=== PATIENT | female | born 1970 | race African-American/Black ===

== ENCOUNTER 2023-04-03 04:18 | Day surgery (SDC) | payer OTHER ==
[2023-04-02 12:49] VITALS: BMI 26.5
[2023-04-03 11:10] VITALS: TEMP 98.4
[2023-04-03 12:00] VITALS: BP 139/84; PULSE 68; RESP 17
== END 2023-04-03 12:20 | disposition home or self-care (01) ==
LOC: JASU-ENDO 04:18
PROVIDERS: ATTEND Internal Medicine Gastroenterology
PROC: 0DB98ZX Excision of Duodenum, Via Natural or Artificial Opening Endoscopic, Diagnostic (ICD-10-PCS; 2023-04-03)
PROC: 0DB78ZX Excision of Stomach, Pylorus, Via Natural or Artificial Opening Endoscopic, Diagnostic (ICD-10-PCS; 2023-04-03)
PROC: 0DB68ZX Excision of Stomach, Via Natural or Artificial Opening Endoscopic, Diagnostic (ICD-10-PCS; 2023-04-03)
PROC: 0DBN8ZX Excision of Sigmoid Colon, Via Natural or Artificial Opening Endoscopic, Diagnostic (ICD-10-PCS; principal; 2023-04-03 11:00)
DX: C18.7 Malignant neoplasm of sigmoid colon (principal); K29.50 Unspecified chronic gastritis without bleeding; K21.00 Gastro-esophageal reflux disease with esophagitis, without bleeding; K59.89 Other specified functional intestinal disorders; K64.8 Other hemorrhoids
CPT/HCPCS: 81025; 88305-TC; 88342-TC

== ENCOUNTER 2023-04-10 04:33 | Day surgery (SDC) | payer OTHER ==
[2023-04-08 13:21] VITALS: BMI 26.5
[2023-04-10 10:22] VITALS: BP 102/68; PULSE 68; RESP 18; TEMP 98
[2023-04-10 10:46] LABS: BASO % 0.4 % (0-2.0); EOS % 6.8 % (0-4.5); HEMATOCRIT 38.3 % (32.4-45.2); LYMPH % 21.6 % (8-40); MCH 32.9 pg (25.7-33.7); MCHC 33.8 g/dl (32.0-36.0); MEAN CELL VOLUME 97.3 fl (80-96); MEAN PLT VOLUME 10.4 fl (7.5-11.1); MONO % 5.8 % (3.8-10.2); NEUT % 65.4 % (42.8-82.8); PLATELET COUNT 137 10^3/uL (134-434); RBC 3.94 M/mm3 (3.60-5.2); RDW 14.2 % (11.6-15.6); WHITE BLOOD COUNT 5.9 K/mm3 (4.0-10.0)
[2023-04-10 10:53] LABS: INR 1.06 (0.83-1.09); PROTHROMBIN TIME (PATIENT) 12.3 SEC (9.7-13.0)
[2023-04-10 11:10] LABS: CHLORIDE 106 mmol/L (98-107); POTASSIUM 3.7 mmol/L (3.5-5.1); SODIUM 139 mmol/L (136-145)
[2023-04-10 11:13] LABS: ALBUMIN 3.8 g/dl (3.4-5.0); ANION GAP 3 MMOL/L (8-16); BLOOD UREA NITROGEN 11.6 mg/dL (7-18); CALCIUM 9.6 mg/dL (8.5-10.1); CO2 30 mmol/L (21-32); GLUCOSE,RANDOM 107 mg/dL (74-106)
[2023-04-10 11:16] LABS: CREATININE 0.7 mg/dL (0.55-1.3); IRON SERUM 93 ug/dL (50-175); SGOT/AST 14 U/L (15-37); SGPT/ALT 20 U/L (13-61); TOTAL IRON BINDING CAPACITY 300 ug/dL (250-450)
[2023-04-10 11:17] LABS: TOT PROT 7.3 g/dl (6.4-8.2)
[2023-04-10 11:18] LABS: BILIRUBIN,TOTAL 0.6 mg/dL (0.2-1)
[2023-04-10 11:19] LABS: ALK PHOS 46 U/L (45-117)
== END 2023-04-10 10:36 | disposition home or self-care (01) ==
LOC: JASU-ENDO 04:33
PROVIDERS: ATTEND Internal Medicine Gastroenterology
PROC: 0DJD8ZZ Inspection of Lower Intestinal Tract, Via Natural or Artificial Opening Endoscopic (ICD-10-PCS; 2023-04-10)
PROC: 0DJD8ZZ Inspection of Lower Intestinal Tract, Via Natural or Artificial Opening Endoscopic (ICD-10-PCS; principal; 2023-04-10 09:00)
DX: Z85.038 Personal history of other malignant neoplasm of large intestine (principal); K64.8 Other hemorrhoids
CPT/HCPCS: 36415; 80053; 81025; 82378; 82728; 83540; 83550; 85025; 85610; 86140; 88305-TC

== ENCOUNTER 2023-10-16 04:17 | Day surgery (SDC) | payer OTHER ==
[2023-10-14 13:29] VITALS: BMI 25.8
[2023-10-16 09:21] VITALS: TEMP 97.2
[2023-10-16 09:30] VITALS: RESP 18
[2023-10-16 09:50] VITALS: BP 127/80; PULSE 55
== END 2023-10-16 10:10 | disposition home or self-care (01) ==
LOC: JASU-ENDO 04:17
PROVIDERS: ATTEND Internal Medicine Gastroenterology
PROC: 0DBN8ZX Excision of Sigmoid Colon, Via Natural or Artificial Opening Endoscopic, Diagnostic (ICD-10-PCS; 2023-10-16)
PROC: 0DBK8ZX Excision of Ascending Colon, Via Natural or Artificial Opening Endoscopic, Diagnostic (ICD-10-PCS; principal; 2023-10-16 09:00)
DX: Z12.11 Encounter for screening for malignant neoplasm of colon (principal); D12.2 Benign neoplasm of ascending colon; K63.89 Other specified diseases of intestine; Z85.038 Personal history of other malignant neoplasm of large intestine
CPT/HCPCS: 88305-TC

== ENCOUNTER 2024-05-12 04:18 | Day surgery (SDC) | payer OTHER ==
[2024-05-10 10:14] VITALS: BMI 25.5
[2024-05-12] MEDS ORDERED: ceFAZolin SODIUM 1 GM VIAL ONE ×2 (06:33→07:13)
[2024-05-12] MEDS ORDERED: PHENAZOPYRIDINE HCL 100 MG TABLET (FP) ONE (06:34)
[2024-05-12] MEDS ORDERED: GABAPENTIN 300 MG CAPSULE ONE (06:34)
[2024-05-12] MEDS ORDERED: ACETAMINOPHEN 500 MG TABLET (FP) ONE (06:35)
[2024-05-12] MEDS: GABAPENTIN 300 MG CAPSULE PO ONE (06:46)
[2024-05-12] MEDS: PHENAZOPYRIDINE HCL 100 MG TABLET (FP) PO ONE (06:46)
[2024-05-12] MEDS: ACETAMINOPHEN 500 MG TABLET (FP) PO ONE (06:46)
[2024-05-12] MEDS ORDERED: ACETAMINOPHEN INJECTION 100 ML IVPB ONE (07:00)
[2024-05-12] MEDS ORDERED: DEXAMETHASONE SOD PHOSPHATE 4 MG/1 ML VIAL ONE (07:13)
[2024-05-12] MEDS ORDERED: LIDOCAINE HCL/PF 2% SDV 5ML VIAL ONE (07:13)
[2024-05-12] MEDS ORDERED: MIDAZOLAM HCL 2 MG/2 ML SINGLE DOSE VIAL ONE (07:14)
[2024-05-12] MEDS ORDERED: FENTANYL CITRATE/PF 50 MCG/ML VIAL ONE (07:14)
[2024-05-12] MEDS ORDERED: PROPOFOL 40 ML ONE (07:14)
[2024-05-12] MEDS ORDERED: ROCURONIUM BROMIDE 50 MG/5 ML SYRINGE ONE (07:14)
[2024-05-12] MEDS ORDERED: SUCCINYLCHOLINE CHLORIDE 200 MG/10 ML SYRINGE ONE (07:14)
[2024-05-12] MEDS ORDERED: ONDANSETRON 4 MG/2 ML VIAL IVPUSH PRN (07:27)
[2024-05-12] MEDS ORDERED: oxyCODONE HCL 5 MG TABLET PO PRN ×3 (07:27→10:42)
[2024-05-12] MEDS: ceFAZolin SODIUM 1 GM VIAL IVPB ONE ×2 (08:20→08:58)
[2024-05-12] MEDS ORDERED: TRANEXAMIC ACID 1000 MG/10 ML VIAL ONE (08:24)
[2024-05-12] MEDS ORDERED: HYDROmorphone HCl 2 MG/ML VIAL ONE (08:34)
[2024-05-12] MEDS ORDERED: NEOSTIGMINE METHYLSULFATE 0.5 MG/1 ML - 10 ML MDV ONE (09:41)
[2024-05-12] MEDS ORDERED: BISACODYL 5 MG TABLET.DR (FP) PO PRN (10:35)
[2024-05-12] MEDS ORDERED: DOCUSATE SODIUM 100 MG CAPSULE (FP) PO PRN (10:35)
[2024-05-12] MEDS ORDERED: SIMETHICONE 80 MG TAB.CHEW (FP) PO PRN (10:35)
[2024-05-12 10:55] VITALS: RESP 18
[2024-05-12] MEDS: IBUPROFEN 800 MG/8 ML IJ IVPB SCH ×2 (12:15)
[2024-05-12] MEDS ORDERED: IBUPROFEN 800 MG/8 ML IJ IVPB ONE (12:16)
[2024-05-12] MEDS: ACETAMINOPHEN INJECTION 100 ML IVPB ONE (13:40)
[2024-05-12] MEDS: ACETAMINOPHEN 1000 MG/100 ML BAG IVPB SCH (13:40)
[2024-05-12] MEDS ORDERED: ETANERCEPT SQ SCH (16:15)
[2024-05-12] MEDS ORDERED: predniSONE 5 MG TABLET (UD) PO SCH (16:15)
[2024-05-12] MEDS ORDERED: [UNRECOGNIZED DRUG - OTHER] SQ SCH (16:15)
[2024-05-12] MEDS: CEFAZOLIN 1 GM in DEXTROSE 5%-WATER - 50 ML IVPB SCH (16:31)
[2024-05-12] MEDS: ONDANSETRON 4 MG/2 ML VIAL IVPUSH PRN (18:41)
[2024-05-12] MEDS ORDERED: IBUPROFEN 800 MG/8 ML IJ IVPB SCH (20:15)
[2024-05-12 20:49] LABS: HEMATOCRIT 32.4 % (32.4-45.2); HEMOGLOBIN 10.7 GM/dL (10.7-15.3); MCH 31.1 pg (25.7-33.7); MCHC 33.1 g/dl (32.0-36.0); MEAN CELL VOLUME 93.9 fl (80-96); MEAN PLT VOLUME 9.3 fl (7.5-11.1); PLATELET COUNT 155 10^3/uL (134-434); RBC 3.45 M/mm3 (3.60-5.2); RDW 13.2 % (11.6-15.6); WHITE BLOOD COUNT 8.9 K/mm3 (4.0-10.0)
[2024-05-12 21:00] LABS: POTASSIUM 3.2 mmol/L (3.5-5.1)
[2024-05-12 21:01] LABS: CALCIUM 8.7 mg/dL (8.5-10.1)
[2024-05-12 21:02] LABS: BLOOD UREA NITROGEN 7.7 mg/dL (7-18)
[2024-05-12 21:06] LABS: CREATININE 0.6 mg/dL (0.55-1.3)
[2024-05-13 06:05] VITALS: TEMP 98.3
[2024-05-13] MEDS: CEFAZOLIN 2 GM in DEXTROSE 5%-WATER - 100 ML IVPB ONE (07:00)
[2024-05-13] MEDS: TRANEXAMIC ACID 1000 MG/10 ML VIAL IVPUSH ONE (07:00)
[2024-05-13] MEDS: HYDROCORTISONE SOD SUCCINATE 100 MG/2 ML VIAL IVPB ONE (07:00)
[2024-05-13] MEDS: IBUPROFEN 600 MG TABLET (FP) PO SCH (07:01)
[2024-05-13] MEDS: LACTATED RINGERS SOLUTION 1,000 ML IV SCH (07:02)
[2024-05-13] MEDS: METHOTREXATE 2.5 MG TABLET PO SCH (07:03)
[2024-05-13 08:03] LABS: HEMATOCRIT 34.1 % (32.4-45.2); HEMOGLOBIN 11.3 GM/dL (10.7-15.3); MCH 31.5 pg (25.7-33.7); MCHC 33.1 g/dl (32.0-36.0); MEAN CELL VOLUME 95.2 fl (80-96); MEAN PLT VOLUME 9.7 fl (7.5-11.1); PLATELET COUNT 157 10^3/uL (134-434); RBC 3.59 M/mm3 (3.60-5.2); RDW 13.2 % (11.6-15.6); WHITE BLOOD COUNT 6.6 K/mm3 (4.0-10.0)
[2024-05-13 08:14] LABS: POTASSIUM 3.4 mmol/L (3.5-5.1)
[2024-05-13 08:19] LABS: BLOOD UREA NITROGEN 7.3 mg/dL (7-18); CALCIUM 8.5 mg/dL (8.5-10.1)
[2024-05-13 08:22] LABS: CREATININE 0.6 mg/dL (0.55-1.3)
[2024-05-13] MEDS: CALCIUM 500MG/VIT-D 200 UNITS COMBO TABLET (FP) PO SCH (09:08)
[2024-05-13] MEDS: FAMOTIDINE 20 MG TABLET PO SCH (09:08)
[2024-05-13] MEDS: FOLIC ACID 1 MG TABLET (FP) PO SCH (09:08)
[2024-05-13] MEDS: predniSONE 5 MG TABLET (UD) PO SCH (09:08)
[2024-05-13] MEDS: CHOLECALCIFEROL (VIT D3) 5000 UNITS (125 MCG) CAP PO SCH (09:08)
[2024-05-13] MEDS: ENOXAPARIN NA (PORCINE) 40 MG/0.4 ML DISP.SYRIN SQ SCH (09:08)
[2024-05-13] MEDS: CYANOCOBALAMIN 1,000 MCG TABLET (FP) PO SCH (09:08)
[2024-05-13] MEDS ORDERED: VIT B12 PO SCH (10:00)
[2024-05-13] MEDS ORDERED: [UNRECOGNIZED DRUG - OTHER] PO SCH (10:00)
[2024-05-13] MEDS ORDERED: FOLIC AC PO SCH (10:00)
[2024-05-13] MEDS ORDERED: IBUPROFEN 600 MG TABLET (FP) PO SCH ×2 (10:00→12:30)
[2024-05-13 10:18] VITALS: BP 128/80; PULSE 60
[2024-05-13] MEDS ORDERED: ACETAMINOPHEN 500 MG TABLET (FP) PO PRN (14:00)
== END 2024-05-13 13:15 | disposition home or self-care (01) ==
LOC: JASUSAT 04:18 → J3W 15:17 → JASUSAT 05-13 13:15
PROVIDERS: ATTEND Obstetrics & Gynecology
PROC: 0UT9FZZ Resection of Uterus, Via Natural or Artificial Opening With Percutaneous Endoscopic Assistance (ICD-10-PCS; principal; 2024-05-12 07:30)
PROC: 8E0W4CZ Robotic Assisted Procedure of Trunk Region, Percutaneous Endoscopic Approach (ICD-10-PCS; 2024-05-12 07:30)
DX: D25.9 Leiomyoma of uterus, unspecified (principal); N88.8 Other specified noninflammatory disorders of cervix uteri
CPT/HCPCS: 58552; S2900; 36415; 80048; 85027; 86850; 86900; 86901; 88305-TC; 88341-TC; 88342-TC; 94010; 94760; J0131

== ENCOUNTER 2024-10-21 04:40 | Day surgery (SDC) | payer OTHER ==
[2024-10-12 14:11] VITALS: BMI 26.5
[2024-10-21 09:37] VITALS: TEMP 97.9
[2024-10-21 09:42] VITALS: PULSE 64
[2024-10-21 10:11] VITALS: RESP 16
[2024-10-21 10:21] VITALS: BP 131/84
== END 2024-10-21 10:33 | disposition home or self-care (01) ==
LOC: JASU-ENDO 04:40
PROVIDERS: ATTEND Internal Medicine Gastroenterology
PROC: 0DBN8ZX Excision of Sigmoid Colon, Via Natural or Artificial Opening Endoscopic, Diagnostic (ICD-10-PCS; principal; 2024-10-21 09:00)
DX: Z12.11 Encounter for screening for malignant neoplasm of colon (principal); K63.5 Polyp of colon; Z85.038 Personal history of other malignant neoplasm of large intestine; Z86.0100 Personal history of colon polyps, unspecified
CPT/HCPCS: 88305-TC